=== PATIENT | female | born 1935 | race Caucasian/White ===

== ENCOUNTER 2020-04-19 08:44 | Emergency (ER) | payer OTHER ==
[~2020-04-19] VITALS: Ht 160 cm; Wt 58.1 kg
[2020-04-19] MEDS ORDERED: NEURONTIN 300M300 M2 PO (08:57)
[2020-04-19] MEDS ORDERED: GLIPIZIDE 10 MG10 MG PO (08:57)
[2020-04-19] MEDS ORDERED: STOMACH MEDICATION (08:57)
[2020-04-19] MEDS ORDERED: NORCO 5-325 TA1 EAC2 PO (10:05)
[2020-04-19 10:27] VITALS: BP 104/55
== END 2020-04-19 10:29 | disposition home or self-care (01) ==
LOC: M.ERS 08:44
DX: M13.862 Other specified arthritis, left knee (principal); M13.861 Other specified arthritis, right knee